=== PATIENT | female | born 1980 | race Caucasian/White ===

== ENCOUNTER 2021-05-26 11:03 | Emergency (ER) | payer BC, SELFPAY ==
--- NOTE | ~2021-05-26 | XR_ITS ---
XR foot LT min 3V 05/26/2021 11:23 Indication: Patient felt pop after stretching foot. Patient has cerebral palsy. Procedure: 4 views left foot Comparison: No prior studies for comparison. Findings: There is internal rotation of the foot with flexion. No fracture or traumatic malalignment. Normal mineralization. No focal soft tissue abnormality. No foreign bodies. Impression: 1: No acute fracture. Reviewed, dictated and finalized at location A. Impression: 1: No acute fracture.
[2021-05-26 11:13] VITALS: BP 133/71; PULSE 80; RESP 16; TEMP 36.6; O2SAT 99
--- NOTE | 2021-05-26 12:23 | ED.GENADULT ---
HPI - General Adult General Chief complaint: Extremity Problem,Nontraumatic Stated complaint: lt foot pain Time Seen by Provider: 05/26/21 12:20 Source: patient and RN notes reviewed Mode of arrival: wheelchair Limitations: no limitations History of Present Illness HPI narrative: 40-year-old female presents today with complaints of left foot pain for the past 5 days. ?Kiera reports stretching LT foot out and heard a loud popping sound and increasing pain over the past 24 hours. ?No known injury. ?Similar pain 2 weeks ago. ?Ibuprofen lasted on 05/25/2021 at approximately 23:30 without relief. ?Hurts to bear weight. ?No radiation of pain. ?No numbness, tingling, or loss of mobility. Exacerbating factor applying weight. ?Denies inability to bear weight. ?Denies discoloration. ?Denies suspect foreign body. ?Denies fever or chills. ?The patient reports she was diagnosed with COVID-19 in October 2020. ?The patient reports she received 2 Moderna COVID-19 vaccines. ?The patient reports she is not waiting for the results of a COVID-19 lab test. ?The patient reports she does not have weakness, fatigue, or myalgia. ?The patient reports she does not have a new or worsening cough or shortness of breath. ?The patient reports she does not have any rhinorrhea, congestion, loss of taste or smell, sore throat, nausea, vomiting, abdominal pain, and diarrhea. ?Denies recent traveling. ?Denies concerns for COVID-19 or exposures. ?At this time, the patient is not suspected of having COVID-19. Some parts of this dictation were generated by voice recognition software and may contain typographical and/or grammatical inaccuracies. Related Data Home Medications Medication Instructions Recorded Confirmed norgestimate-ethinyl estradiol tablet 05/26/21 [Tri Femynor] Allergies Allergy/AdvReac Type Severity Reaction Status Date / Time No Known Allergies Allergy Verified 06/27/20 13:16 Review of Systems Review of Systems: CONSTITUTIONAL: Denies fever, chills, sweats. EYES: Denies visual changes, redness, discharge. ENT: Denies rhinorrhea, congestion, sore throat, otalgia. CARDIOVASCULAR: Denies chest pain, palpitations, edema. RESPIRATORY: Denies dyspnea, wheezing, cough. GASTROINTESTINAL: Denies abdominal pain, nausea, vomiting, diarrhea. SKIN: Denies rash or itching. MUSCULOSKELETAL: Denies acute back pain or myalgia. Complaints of left foot pain. NEUROLOGIC: Denies numbness or focal weakness. PSYCHIATRIC: Denies anxiety or depression. All other systems reviewed are negative, except as documented in HPI and below. [facility] Past Medical History Medical History (Updated 05/27/21 @ 00:00 by Background Daemon) Anxiety Cerebral palsy Surgical History Surgical History H/O section Family History Family History Father Hypertension Heart disease Grandparent Heart disease Hypertension Social History Social History Smoking status: Never smoker Alcohol intake: current Substance use: never Additional occupation/education comments: teacher Gender identity (if verbalized by the patient): Female Comments At time of signature, agree with the nurse past medical, surgical, social, and family history. There is relevant patient's history pertinent to the presenting complaint, no relevant family history pertinent to the presenting complaint. Exam Narrative: GENERAL: This is a well-nourished, well-developed patient, in no apparent distress. Ambulates with a limp favoring the left lower extremity. HEAD: Normocephalic, atraumatic. EYES: PERRL. Sclera clear/white. Vision is grossly intact. CARDIOVASCULAR: Regular rate and rhythm without murmurs, gallops, or rubs. RESPIRATORY: Clear to auscultation. Breath sounds equal bilaterally. No wheezes, rales, or rh
== END 2021-05-26 12:44 | disposition home or self-care (01) ==
PROVIDERS: Emergency Provider Nurse Practitioner Family; PCP Family Medicine
DX: M25.572 Pain in left ankle and joints of left foot (principal); G80.9 Cerebral palsy, unspecified
CPT/HCPCS: 73630; 99213; G0463

== ENCOUNTER 2024-01-15 14:35 | Outpatient (CLI) | payer OTHER, SELFPAY ==
--- NOTE | ~2024-01-15 | MM_ITS ---
EXAMINATION: MM screening tamiko BI w alexi HISTORY: Screening mammogram TECHNIQUE: Craniocaudal and mediolateral oblique 3-D tomosynthesis images were obtained and synthetic 2-D images were generated. CAD analysis was submitted and interpreted. COMPARISON: No prior mammogram is available for comparison at this institution. BREAST PARENCHYMAL COMPOSITION: There are scattered areas of fibroglandular density. FINDINGS: There is asymmetry in the posterior upper outer left breast. Diagnostic left mammogram is r ecommended, with ultrasound if required. Otherwise no suspicious mass, architectural distortion, malignant calcification, skin thickening or r etraction of either breast is noted. IMPRESSION: 1. Left mammographic asymmetry 2. Diagnostic left mammogram is recommended, with ultrasound if required BI-RADS Category 0: Incomplete: Needs additional imaging evaluation. Reviewed, dictated and finalized at location A.
== END 2024-01-15 14:36 | disposition home or self-care (01) ==
PROVIDERS: Visit Provider Obstetrics & Gynecology
DX: Z12.31 Encounter for screening mammogram for malignant neoplasm of breast (principal); R92.8 Other abnormal and inconclusive findings on diagnostic imaging of breast
CPT/HCPCS: 77063; 77067

== ENCOUNTER 2024-02-18 11:58 | Outpatient (CLI) | payer OTHER, SELFPAY ==
--- NOTE | ~2024-02-18 | MMUS_ITS ---
EXAMINATION: MM diagnostic tamiko LT w alexi, US breast LT limited HISTORY: Follow-up left breast asymmetry TECHNIQUE: Additional 3-D tomosynthesis images of the left breast were performed and synthetic 2-D im ages were generated. CAD analysis was submitted and interpreted. High resolution Limited left breast ultrasound was performed. COMPARISON: 01/15/2024 BREAST PARENCHYMAL COMPOSITION: Not dense: There are scattered areas of fibroglandular density. FINDINGS: MAMMOGRAPHIC FINDINGS: There is persistent asymmetries in the upper outer quadrant of the left breast. No discrete mass, eliza picious calcifications or architectural distortion is identified. ULTRASOUND: Limited left breast ultrasound: Normal heterogeneous echotexture without focal solid or cystic mass. IMPRESSION: 1. No evidence for malignancy in the left breast. 2. Routine yearly screening mammogram and regular clinical breast examination are recommended. BI-RADS CATEGORY 1 - NEGATIVE Reviewed, dictated and finalized at location B. IMPRESSION: 1. No evidence for malignancy in the left breast. 2. Routine yearly screening mammogram and regular clinical breast examination a re recommended. BI-RADS CATEGORY 1 - NEGATIVE
== END 2024-02-18 11:59 | disposition home or self-care (01) ==
LOC: ANHIMG 11:59
PROVIDERS: PCP Family Medicine; Visit Provider Obstetrics & Gynecology
DX: R92.8 Other abnormal and inconclusive findings on diagnostic imaging of breast (principal)
CPT/HCPCS: 76642; 77061; 77065; G0279

== ENCOUNTER 2024-04-26 14:34 | Outpatient (CLI) | payer OTHER, SELFPAY ==
--- NOTE | 2024-04-26 14:48 | ECHO_ITS ---
Patient Info Name: Kiera Gray Age: 43 years : 1980 Gender: Female Ht: 49 in Wt: 210 lbs BSA: 1.90 m2 HR: 76 bpm BP: 141 / 105 mmHg Heart Rhythm: Sinus Rhythm Technical Quality: Fair Exam Date: 04/26/2024 2:56 PM Exam Location: Echo Lab Patient Status: Outpatient Admit Date: 04/26/2024 Staff Ordering Physician: Dang Champion PA-C Manager Games: Emily Frazier RDCS Attending Provider: Dang Champion PA-C Referring Physician: Akira MATA; Exam Type: CA echo doppler color flow Study Info Indications R60.9 - Edema, unspecified Complete two-dimensional, color flow and Doppler transthoracic echocardiogram is performed. Summary 1. Complete two-dimensional, color flow and Doppler transthoracic echocardiogram is performed. 2. Left ventricular chamber dimension is normal. 3. Left ventricular systolic function is normal, estimated at 60-65%. 4. The left ventricular diastolic function is grade II diastolic dysfunction. 5. E/e' 6 is not elevated. 6. There is trace tricuspid valve regurgitation. 7. No pulmonary hypertension, estimated pulmonary arterial systolic pressure is 24 mmHg. Left Ventricle E/e' 6 is not elevated. Left ventricular chamber dimension is normal. Left ventricular systolic function is normal, estimated at 60-65%. The left ventricular diastolic function is grade II diastolic dysfunction. Right Ventricle Right ventricular systolic function is normal and with normal TAPSE 2.7 cm. Right ventricular chamber dimension is normal. Left Atria Left atrial chamber dimension is normal. Right Atria Right atrial chamber dimension is normal. Aortic Valve The aortic valve is trileaflet. There is no aortic valve stenosis. There is no aortic valve regurgitation. Pulmonic Valve There is no pulmonic regurgitation. Mitral Valve There is no mitral valve stenosis. There is no mitral valve regurgitation. Tricuspid Valve There is trace tricuspid valve regurgitation. No pulmonary hypertension, estimated pulmonary arterial systolic pressure is 24 mmHg. Pericardium/Pleural There is no pericardial effusion. Inferior Vena Cava Normal inferior vena cava with >50% collapse upon inspiration consistent with normal right atrial pressure, 5 mmHg. Aorta The aortic root size at the sinus of Valsalva is normal. Left Ventricular Outflow Tract Name Value Normal LVOT 2D LVOT Diameter 2.0 cm LVOT Doppler LVOT Peak Gradient 2 mmHg LVOT Mean Gradient 1 mmHg LVOT VTI 16 cm LVOT VTI/AV VTI Ratio 0.6 LVOT Stroke Volume 50 ml LVOT CO 3.3 l/min LVOT CI 1.7 l/min/m2 Pulmonic Valve Name Value Normal RVOT Doppler RVOT Peak Gradient 2 mmHg PV Doppler
== END 2024-04-26 14:35 | disposition home or self-care (01) ==
LOC: ANHCARD 14:35
PROVIDERS: PCP Family Medicine; Visit Provider Student in an Organized Health Care Education/Training Program
DX: I51.89 Other ill-defined heart diseases (principal)
CPT/HCPCS: 93306

== ENCOUNTER 2024-06-04 15:15 | Outpatient (RCR) | payer OTHER, SELFPAY ==
--- NOTE | 2024-03-31 17:30 | PTOPEVAL1 ---
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 Upon assessment, there is noted significant ROM deficits and tone likely to chronic diagnosis, joint stiffness and hypomobility of multiple joints which greatly impacts her ability to perform ADLs and IADLs safely and independently. She will greatly benefit from skilled PT to improve mobility, strength, endurance and balance to improve quality of life. Plan of Care Interventions Gait Training,Manual Therapy,Neuro Re-education, Patient/Caregiver Education, Therapeutic Activities, Therapeutic Exercise,Ultrasound, Dry needling, IASTM PT Services Indicated Yes Treatment Frequency and 2x/week x 10 visits Duration These treatments will address the objective and functional deficits as defined above. The patient will be advanced safely and appropriately in order for the patient to progress towards his/her prior level of function. Additional exercises will be introduced and as well as a comprehensive home exercise program upon discharge, if needed, ?to ensure carryover of functional gains achieved in the clinic. This treatment plan has been reviewed and agreement upon by the patient.
--- NOTE | 2024-04-09 09:41 | OTOPEVDC ---
Assessment and note entered by ZINA Crason/Shahrzad, CHT Evaluation Information & Discharge Notification 04/09/22 Diagnosis Cerebral Palsy Subjective Information Patient reports a physical decline over the last 2 years. She reports she started working from home, being more sedentary, and sustained a knee injury. She reports she is currently independent with ADLs. She lives at home with her and 2 children. Her does the cooking. She does some cleaning and laundry. They help her carry the laundry basket up the stairs. They have diesel mechanic helper 1x/month to scrub the shower and to sweep/mop. Overall she reports she is interested in improving her mobility and stamina. She feels as though her arm strength is very functional. Assessment OT Clinical Summary Patient referred to OT with dx of CP. She presents with intact, symmetrical, and functional upper body strength and coordination. She has appropriate DME for ADLs. At this time it appears her mobility deficits will be addressed by PT at this clinic. No further skilled OT indicated at this time. Plan of Care OT Services Indicated No
--- NOTE | 2024-06-04 13:00 | PCPTNOTE ---
LATE ENTRY for?03-31-24: OUTPATIENT THERAPY PLAN OF CARE: 1.? Knowledge: Pt will demo HEPs to improve strength and flexibility to core, back and BLEs indep. 2.? Pain: Pt will report pain levels of 2-3/10 at worst during standing or walking activities to improve activity tolerance. 3.? Impaired Strength: Pt will perform 5 x STS within 15 seconds indicating improved general BLE strength and balance. 4.? Impaired Gait: Pt will ambulate 200ft or more in 2 min walk test with RPE levels of 2-3 indicating improved gait and endurance. 5.? Impaired Functional mobility: Pt will demo a score of 10% disability in Modified Oswestry Low Back Outcome Measures and > 40 on LEFs
--- NOTE | 2024-06-04 15:57 | PTOPDC ---
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 Reported Pain Level Pain Score Self Report Additional Pain Score Comments pain range of back in the past week 0-2/10; Assessment PT Clinical Summary Kiera has received a total of 9 PT sessions. Compared to the initial evaluation: decrease reported back pain; 2 minute walking distance increased: with use of cane 140' and now with wheeled walker 275'; increase strength of R and L LE; continues to have tone from CP; education completed for HEP. She has increased awareness of posture and positioning of her body with exercises and walking. Discharge PT and she is to continue with her home exercise program. Plan of Care PT Services Indicated No
== END 2024-06-04 16:25 | disposition home or self-care (01) ==
LOC: ANHPT 15:15
PROVIDERS: PCP Family Medicine; Visit Provider Student in an Organized Health Care Education/Training Program
DX: G80.9 Cerebral palsy, unspecified (principal)
CPT/HCPCS: 97110; 97112; 97161; 97165; 97530

== ENCOUNTER 2025-01-10 09:10 | Emergency (ER) | payer OTHER, SELFPAY ==
--- NOTE | ~2025-01-10 | XR_ITS ---
3 VIEWS LUMBAR SPINE Ordering provider: Jaleel Patrick MD History: . back pain . Comparison: None. FINDINGS: VERTEBRAL BODIES: No visible fracture or subluxation. Degenerative changes of the spine. DISK SPACES: Normal. SOFT TISSUES: Normal. IMPRESSION: No acute osseous abnormality lumbar spine. Reviewed, dictated and finalized at location A.
[2025-01-10 09:27] VITALS: BP 127/79; PULSE 86; RESP 14; TEMP 36.6; O2SAT 100
--- NOTE | 2025-01-10 13:05 | ED.GENADULT ---
HPI - General Adult General Chief complaint: Back Pain/Injury Stated complaint: severe back spams Time Seen by Provider: 01/10/25 12:02 History of Present Illness HPI narrative: 44-year-old female with history of CP presenting to the emergency department for evaluation for lower back pain. Patient states she normally does have some gait asymmetry is often prone to back pain. Patient began having back pain/spasms yesterday but denies any specific injury. Patient has responded well to cyclobenzaprine previously. Patient does not take muscle relaxants or baclofen daily. Patient denies any associated numbness or weakness. Patient denies any change in bowel or bladder habits. Patient denies any specific injury. Related Data Home Medications ?Medication ?Instructions ?Recorded ?Confirmed ?Last Taken ?Type norgestimate-ethinyl estradiol tablet 05/26/21 11/03/24 Unknown History 0.18 mg/0.215mg/0.25mg-35 mcg(28)tablet (Tri Femynor) Allergies Allergy/AdvReac Type Severity Reaction Status Date / Time No Known Allergies Allergy Verified 01/10/25 10:54 Review of Systems Review of Systems: All systems reviewed & are unremarkable except as noted in HPI and below PMFSH Past Medical History Medical History Edema Weight gain Anxiety Cerebral palsy Surgical History Surgical History H/O section Family History Family History Father Hypertension Heart disease Grandparent Heart disease Hypertension Mother Endometrial cancer Social History Social History Smoking status: Never smoker Alcohol intake: current Alcohol use details: seldom; socially Substance use: never Substance use type: does not use Lack of Transportation: No Lack of Food: Never True Current Housing: I Have Housing Concerned About Future Housing: No Difficulty Paying Gas/Electric Bills: No Difficulty Paying for Meds: No Currently Unemployed: No Difficulty w/ Childcare or Family Care: No Living arrangements: with family Additional occupation/education comments: teacher Gender identity (if verbalized by the patient): Female Spiritual care concerns: No Agree to blood products: Yes Exam Narrative: APPEARANCE: Well appearing, no pain, no distress, well-nourished. HEAD: normocephalic, atraumatic. EYES: PERRLA/EOMI, conjunctivae clear. NOSE: Normal no drainage EARS:TMS clear with good light reflex. THROAT: Pharynx clear, no exudate. NECK: Supple. No adenopathy, no masses. RESPIRATORY: Airway patent, respirations nonlabored. Clear to auscultation bilaterally, no rales, rhonchi, wheezing. CARDIOVASCULAR: Regular rate and rhythm without murmurs rubs or gallops. ABDOMINAL: Soft, nontender, nondistended, normal bowel sounds MUSCULOSKELETAL: Bilateral lower back tenderness to palpation NEURO: Alert. Cranial nerves II through XII intact. Good gait. Good coordination SKIN: Warm, dry. Normal Color Course Vital Signs Vital signs: Vital Signs Temperature 97.9 F 01/10/25 09:27 Pulse Rate 86 01/10/25 09:27 Respiratory Rate 14 01/10/25 09:27 Blood Pressure 127/79 01/10/25 09:27 Pulse Oximetry 100 01/10/25 09:27 Oxygen Delivery Room Air 01/10/25 09:27 Temperature 97.9 F 01/10/25 09:27 Pulse Rate 86 01/10/25 09:27 Respiratory Rate 14 01/10/25 09:27 Blood Pressure 127/79 01/10/25 09:27 Pulse Oximetry 100 01/10/25 09:27 Oxygen Delivery Room Air 01/10/25 09:27 Medical Decision Making [facility] Narrative Medical decision making narrative: 44-year-old female with history of cerebral palsy and back pain presented emergency department for evaluation for acute back spasms. X-ray was negative for acute fracture dislocation. Patient denies any prior history of kidney stones denies any urinary symptoms. Patient was treated with Toradol and cyclobenzaprine. Patient will be discharged home with additional cyclobenzaprine, instructions for ibuprofen and [place] as needed for additional pain control. Patient was encouraged to have close follow-up with her primary care physician. Differential Diagnosis Differential Diagnosis: Back strain, UTI, kidney stone, lumbar fracture Vital Signs Vital Signs: Vital Signs Temperature 97.9 F 01/10/25 09:27 Pulse Rate 86 01/10/25 09:27 Respiratory Rate 14 01/10/25 09:27 Blood Pressure 127/79 01/10/25 09:27 Pulse Oximetry 100 01/10/25 09:27 Oxygen Delivery Room Air 01/10/25 09:27 Temperature 97.9 F 01/10/25 09:27 Pulse Rate 86 01/10/25 09:27 Respiratory Rate 14 01/10/25 09:27 Blood Pressure 127/79 01/10/25 09:27 Pulse Oximetry 100 01/10/25 09:27 Oxygen Delivery Room Air 01/10/25 09:27 Lab Data Lab results reviewed: Yes I reviewed the patient's lab results. Imaging Data Radiologist's impression: Impressions Lumbar Spine X-Ray 01/10/25 13:29 IMPRESSION: No acute osseous abnormality lumbar spine. Discharge Plan Discharge Clinical Impression: Strain of lumbar region Patient Disposition: Home, Self-Care Condition: Stable Instructions: Antibiotic Form, Acute Low Back Pain (ED) Additional Instructions: Ibuprofen for pain control. Cyclobenzaprine for muscle spasm. [place] as needed for additional pain control. Have close follow-up with your primary care physician. If you have any worsening symptoms then please call or return to the emergency department. Patient Language: Ukrainian Prescriptions: New cyclobenzaprine 10 mg tablet 10 mg PO BID PRN (Reason: muscle spasm) Qty: 14 0RF hydrocodone-acetaminophen 5-325 mg tablet 1 tablet PO Q12H PRN (Reason: pain) Qty: 14 0RF No Action norgestimate-ethinyl estradiol [Tri Femynor] 0.18/0.215/0.25 mg-35 mcg (28) tablet prednisone 10 mg tablet 10 mg PO DIRECTED Qty: 30 0RF Rx Instructions: Take 5 tabs daily PO for 2 days, 4 tabs daily PO for 2 days, 3 tabs daily PO for 2 days, 2 tabs daily PO for 2 days, 1 tab daily PO for 2 days. buspirone 10 mg tablet 10 mg PO TID Qty: 270 0RF Zepbound 5 mg/0.5 mL pen injector 5 mg subcut WEEKLY Qty: 2 0RF Follow-up/Referrals: Maliha Hernandez MD [Primary Care Provider] -
[2025-01-10] MEDS: KETOROLAC 30 MG/ML VIAL (*BKC) IM (13:54)
[2025-01-10] MEDS: CYCLOBENZAPRINE HCL 10 MG TABLET PO (13:54)
== END 2025-01-10 13:55 | disposition home or self-care (01) ==
PROVIDERS: Emergency Provider Emergency Medicine; PCP Family Medicine
DX: S39.012A Strain of muscle, fascia and tendon of lower back, initial encounter (principal); G80.9 Cerebral palsy, unspecified
CPT/HCPCS: 72100; 96372; 99283; A9270; J1885

== ENCOUNTER 2025-03-23 08:27 | Outpatient (CLI) | payer OTHER, SELFPAY ==
--- NOTE | ~2025-03-23 | MM_ITS ---
EXAMINATION: MM screening tamiko BI w alexi HISTORY: Screening TECHNIQUE: Craniocaudal and mediolateral oblique 3-D tomosynthesis images were obtained and synthetic 2-D images were generated. CAD analysis was submitted and interpreted. COMPARISON: 01/15/2024 BREAST PARENCHYMAL COMPOSITION: Not dense: There are scattered areas of fibroglandular density. FINDINGS: There is no evidence of suspicious mass, calcification, or architectural distortion to sug gest malignancy in either breast. There has been no suspicious interval change. IMPRESSION: 1. No mammographic evidence of malignancy. 2. Recommend routine screening mammography in one year. BI-RADS Category 1: Negative Reviewed, dictated and finalized at location B.
--- OUTSIDE RECORDS SUMMARY | 2025-03-23 08:31 | XMS_ITS | Clinical Summary ---
Author Organization [facility] Office Building [address] [place] [id number] Care Team Providers Care Corporate Claims Examiner Name Role Phone Maliha Hernandez MD Primary Care Provider [phone] Allergies No known active allergies Medications Zepbound 2.5 mg/0.5 mL pen injector INJECT 2.5 MG SUBCUTANEOUSLY WEEKLY FOR 4 WEEKS 5 Active busPIRone (BUSPAR) 10 mg tabletIndicati ons:Generalize d Anxiety Disorder Take 1 tablet (10 mg total) by mouth 3 (three) times a day Active cyclobenzaprin e (FLEXERIL) 10 mg tablet TAKE 1 TABLET BY MOUTH TWICE A DAY NEEDED FOR MUSCLE SPASMS 5 Active HYDROcodone-ac etaminophen (NORCO) 5-325 mg per tablet Take 1 tablet by mouth every 12 (twelve) hours as needed for pain 5 Active diazePAM (Valium) 10 mg tablet Take one tab po one hour prior to MRI. 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 Overview (01/23/2017): CEREBRAL PALSY NEC 09/01/2012 Clubfoot 07/11/2010 Encounters Date Type Department Care Team Description 02/10/2025 10:54 AM CDT - 02/10/2025 11:59 PM CDT Hospital Encounter [facility] [address] [place] [phone] Waldo Zamudio MD Spastic quadriplegic cerebral palsy (HCC); Spasticity Discharge Disposition: Discharge to home or self care 02/01/2025 3:57 PM CDT - 02/01/2025 11:59 PM CDT Hospital Encounter [facility] [address] [place] [phone] Waldo Zamudio MD Spastic quadriplegic cerebral palsy (HCC); Radiculopathy, lumbosacral region Discharge Disposition: Discharge to home or self care 01/27/2025 Orders Only [facility] [address] [place] [phone] Waldo Zamudio MD Pre-op testing (Primary Dx) 01/26/2025 Orders Only [facility] [address] [place] [phone] Waldo Zamudio MD Spastic quadriplegic cerebral palsy (HCC) (Primary Dx); Spasticity 01/26/2025 Telephone [facility] [address] [place] [phone] Sandra Cortez, JANNETH 01/26/2025 Telephone [facility] [address] [place] [phone] Vanessa Grimaldo 01/26/2025 Telephone [facility] [address] [place] [phone] Vanessa Grimaldo 01/25/2025 11:00 AM CDT - 01/25/2025 11:59 PM CDT Hospital Encounter [facility] [address] [place] [phone] Waldo Zamudio MD Spasticity [R25.2] (Primary Dx); Spastic quadriplegic cerebral palsy (HCC); Radiculopathy, lumbosacral region Discharge Disposition: Discharge to home or self care 01/24/2025 Orders Only [facility] [address] [place] [phone] Waldo Zamudio MD 01/24/2025 Orders Only [facility] [address] [place] [phone] Waldo Zamudio MD 01/19/2025 2:30 PM CDT - 01/19/2025 11:59 PM CDT Hospital Encounter [facility] [address] [place] [phone] Waldo Zamudio MD Spastic quadriplegic cerebral palsy (HCC) (Primary Dx); Spasticity; Radiculopathy, lumbosacral region Discharge Disposition: Discharge to home or self care from Last 3 Months Immunizations Immunization Administration Dates Next Due Influenza, Split 08/05/2012 Surgical History Surgery Date Site/Laterality Comments OTHER SURGICAL HISTORY 2010 : OTHER SURGICAL HISTORY 2012 : Medical History Medical History Date Comments Hx Other Medical 2010 ; Comm ents: Failure to progress in labor. Some term labile blood pressure. 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 Monthly or less 01/19/2025 Q2: How many drinks containi ng alcohol do you have on a typical day when you are drinking? 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 Gender Identity Not on file Sexual Orientation Not on file Obstetrics History Last Filed Vital Signs Vital Sign Reading Time Taken Comments Blood Pressure 149/69 02/10/2025 11:51 AM CDT Pulse 127 02/10/2025 11:51 AM CDT Temperature 36.8 C (98.3 F) 02/10/2025 11:09 AM CDT Respiratory Rate 18 02/10/2025 11:51 AM CDT Oxygen Saturation 100% 02/10/2025 11:51 AM CDT Inhaled Oxygen Concentration - - Weight 94.3 kg (208 lb) 01/19/2025 2:42 PM CDT Height 149.9 cm (4' 11) 01/19/2025 2:42 PM CDT Body Mass Index 42.01 01/19/2025 2:42 PM CDT Plan of Treatment Health Maintenance Due Date Last Done Comments Breast Cancer Screening-Mammogram 1982 Cervical Cancer Screening 1982 Depression Screening 1982 Hepatitis C Screening 1982 DTaP/Tdap/Td Vaccine (1 - Tdap) 1993 Varicella Vaccines (1 of 2 - 13+ 2-dose series) 1995 Hepatitis B Screening 2000 Regular Well Visit/Exam 18-64 2000 Covid-19 Vaccine ( season) 2024 10/16/2022, 08/23/2021, 01/06/2021, Additional history exists Influenza Vaccine Completed 11/03/2024, 08/05/2012 HPV Vaccines Aged Out No longer eligi ble based on patient's age to complete this topic Pneumococcal vaccine <65 Aged Out No longer eligible based on patient's age to complete this topic Procedures Procedure Name Priority Date/Time Associated Diagnosis Comments PAIN MGMT IMAGING LUMBAR/CAUDAL EPIDURAL STEROID INJ Schedule Routine, Read Routine (OP Routine) 02/10/2025 11:41 AM CDT Spastic quadriplegic cerebral palsy (HCC) Spasticity MRI LUMBAR SPINE WO CONTRAST Schedule Routine, Read Routine (OP Routine) 02/01/2025 4:44 PM CDT Spastic quadriplegic cerebral palsy (HCC) Radiculopathy, lumbosacral region PAIN MGMT IMAGING LUMBAR/CAUDAL EPIDURAL STEROID INJ Schedule Routine, Read Routine (OP Routine) 01/25/2025 11:45 AM CDT Spastic quadriplegic cerebral palsy (HCC) Radiculopathy, lumbosacral region from Last 3 Months Results * Imaging Lumbar/Caudal Epidural Steroid INJ ([id number]) (02/10/2025 11:41 AM CDT) Narrative [facility] - 02/10/2025 11:17 AM CDT The images from this study are not interpreted by Radiology. Please refer to the physician's procedure / OR operative note. us Waldo Zamudio MD IMG PAIN MGMT PROCEDU RES Final Result [facility] * MRI Lumbar Spine WO Contrast (02/01/2025 4:44 PM CDT) Anatomical Region Laterality Modality Spine N/A Magnetic Resonan ce 02/02/2025 8:45 AM CDT Impressions 02/02/2025 8:45 AM CDT Disc bulge and facet arthropathy at L4-L5 and L5-S1. Laminectomy at L1-L2 and L2-L3. No lumbar disc herniation or central stenosis. Electronically signed by: Ashleigh Arredondo M.D. Narrative 02/02/2025 8:45 AM CDT Examination: MRI LUMBAR SPINE WO CONTRAST Date: 02/01/2025 4:30 PM Clinical History: Low back pain, symptoms persist with > 6 wks treatment cerebral palsy Technique: MRI lumbar spine obtained using multiplanar multisequence images without contrast. Comparison:None. Findings: Lumbar vertebrae are normal in height, alignment and marrow signal. The disc heights are maintained.. The conus ends at L1-L2.The visualized distal cord is unremarkable. L1-L2: Disc bulging, mild facet arthropathy, and laminectomy is seen. There is no central, lateral recess or foraminal stenosis. L2-L3: The disc is unremarkable. Mild facet arthropathy and laminectomy is noted. There is no central, lateral recess or foraminal stenosis. L3-L4: The disc is unremarkable. There is mild facet arthropathy and ligamentum flavum infolding but no central, lateral recess or foraminal stenosis L4-L5: Disc bulging and moderate right, mild left facet arthropathy is seen. There is no central , lateral recess or foraminal stenosis L5-S1: Disc bulging and moderate facet arthropathy is seen. There is no central, lateral recess or foraminal stenosis. Procedure Note Ashleigh Arredondo MD - 02/02/2025 Examination: MRI LUMBAR SPINE WO CONTRAST Date: 02/01/2025 4:30 PM Clinical History: Low back pain, symptoms persist with > 6 wks treatment cerebral palsy Technique: MRI lumbar spine obtained using multiplanar multisequence images without contrast. Comparison:None. Findings: Lumbar vertebrae are normal in height, alignment and marrow signal. The disc heights are maintained.. The conus ends at L1-L2.The visualized distal cord is unremarkable. L1-L2: Disc bulging, mild facet arthropathy, and laminectomy is seen. There is no central, lateral recess or foraminal stenosis. L2-L3: The disc is unremarkable. Mild facet arthropathy and laminectomy is noted. There is no central, lateral recess or foraminal stenosis. L3-L4: The disc is unremarkable. There is mild facet arthropathy and ligamentum flavum infolding but no central, lateral recess or foraminal stenosis L4-L5: Disc bulging and moderate right, mild left facet arthropathy is seen. There is no central , lateral recess or foraminal stenosis L5-S1: Disc bulging and moderate facet arthropathy is seen. There is no central, lateral recess or foraminal stenosis. IMPRESSION: Disc bulge and facet arthropathy at L4-L5 and L5-S1. Laminectomy at L1-L2 and L2-L3. No lumbar disc herniation or central stenosis. Electronically signed by: Ashleigh Maria Elena, M.D. us Waldo Zamudio MD IMG MRI PROCEDURES Fi nal Result * Imaging Lumbar/Caudal Epidural Steroid INJ ([id number]) (01/25/2025 11:45 AM CDT) Narrative [facility] - 01/25/2025 11:46 AM CDT The images from this study are not interpreted by Radiology. Please refer to the physician's procedure / OR operative note. Waldo Zamudio MD IMG PAIN MGMT PROCEDU RES Final Result [facility] from Last 3 Months Insurance [employer] [place] [phone] Care Teams Corporate Claims Examiner Relationship Specialty Start Date End Date Maliha Hernandez MD [address] [place] [address] PCP - General Family Medicine 01/12/25
--- OUTSIDE RECORDS SUMMARY | 2025-03-23 08:31 | XMS_ITS | Referral Summary ---
Author Organization [facility] Office Building [address] [place] [phone] Care Team Providers Care Lieutenant/Deputy Name Role Phone Maliha Hernandez MD Primary Care Provider [phone] Encounters Date Type Department Care Team Description 02/10/2025 10:54 AM CDT - 02/10/2025 11:59 PM CDT Hospital Encounter [facility] [address] [place] [phone] Waldo Zamudio MD Spastic quadriplegic cerebral palsy (HCC); Spasticity Discharge Disposition: Discharge to home or self care 02/01/2025 3:57 PM CDT - 02/01/2025 11:59 PM CDT Hospital Encounter [facility] [address] [place] [phone] Waldo Zamudio MD Spastic quadriplegic cerebral palsy (HCC); Radiculopathy, lumbosacral region Discharge Disposition: Discharge to home or self care 01/27/2025 Orders Only [facility] [address] [place] [phone] Waldo Zamudio MD Pre-op testing (Primary Dx) 01/26/2025 Orders Only [facility] [address] [place] [phone] Waldo Zamudio MD Spastic quadriplegic cerebral palsy (HCC) (Primary Dx); Spasticity 01/26/2025 Telephone [facility] [address] [place] [phone] Sandra Cortez RN 01/26/2025 Telephone [facility] [address] [place] [phone] Vanessa Grimaldo 01/26/2025 Telephone [facility] [address] [place] [phone] Vanessa Grimaldo 01/25/2025 11:00 AM CDT - 01/25/2025 11:59 PM CDT Hospital Encounter [facility] [address] [place] [phone] Waldo Zamudio MD Spasticity [R25.2] (Primary Dx); Spastic quadriplegic cerebral palsy (HCC); Radiculopathy, lumbosacral region Discharge Disposition: Discharge to home or self care 01/24/2025 Orders Only [facility] [address] [place] [phone] Waldo Zamudio MD 01/24/2025 Orders Only [facility] [address] [place] [phone] Waldo Zamudio MD 01/19/2025 2:30 PM CDT - 01/19/2025 11:59 PM CDT Hospital Encounter [facility] [address] [place] [phone] Waldo Zamudio MD Spastic quadriplegic cerebral palsy (HCC) (Primary Dx); Spasticity; Radiculopathy, lumbosacral region Discharge Disposition: Discharge to home or self care from Last 3 Months Allergies No known active allergies Medications Zepbound [...] to MRI. 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 Overview (01/23/2017): CEREBRAL PALSY NEC 09/01/2012 Clubfoot 07/11/2010 Immunizations Immunization Administration Dates Next Due Influenza, Split 08/05/2012 Social History Tobacco Use Types Packs/Day Years [...] on file 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 Electronically signed by: Ashleigh Arredondo M.D. Waldo Zamudio MD IMG MRI PROCEDURES Fi nal Result * Imaging Lumbar/Caudal Epidural Steroid INJ ([id number]) (01/25/2025 11:45 AM CDT) Narrative [facility] - 01/25/2025 11:46 AM CDT The images from this study are not interpreted by Radiology. Please refer to the physician's procedure / OR operative note. Waldo PARISI PAIN MGMT PROCEDU RES Final Result [facility] from Last 3 Months Insurance [email or web address] OPEN ACCESS [facility] OPEN ACCESS Care Teams Lieutenant/Deputy Relationship Specialty Start Date End Date Maliha Hernandez MD [address] [place] [address] PCP - General Family Medicine 01/12/25
== END 2025-03-23 08:28 | disposition home or self-care (01) ==
LOC: ANHIMG 08:29
PROVIDERS: PCP Family Medicine; Visit Provider Obstetrics & Gynecology
DX: Z12.31 Encounter for screening mammogram for malignant neoplasm of breast (principal)
CPT/HCPCS: 77063; 77067